=== PATIENT | female | born 2000 | race Caucasian/White ===

== ENCOUNTER 2020-04-11 15:25 | Emergency (ER) | payer OTHER ==
[~2020-04-11] VITALS: Ht 165.1 cm; Wt 63.5 kg
[2020-04-11 17:07] LABS: ABSOLUTE NEUTROPHILS 2.5 thou/uL (1.4-8.2); BASOPHILS 0.2 % (0.0-2.0); EOSINOPHILS 5.9 % (0.0-3.0); HEMATOCRIT 37.8 % (37.0-47.0); HEMOGLOBIN 12.8 gm/dL (12.0-15.0); LYMPHOCYTES 40.6 % (24.0-44.0); MCH 31.8 pg (26.0-34.0); MCHC 33.9 g/dL (28.0-37.0); MONOCYTES 8.3 % (1.0-8.0); PLATELET COUNT 213 thou/uL (150-400); RBC 4.02 mil/uL (4.20-5.00); RDW 13.2 % (10.5-14.5); WBC 5.6 thou/uL (4.0-11.0)
[2020-04-11 17:15] LABS: ANION GAP 10 mmol/L (7-16); BUN 11 mg/dL (7-18); CALCIUM 8.9 mg/dL (8.5-10.1); CHLORIDE 104 mmol/L (98-107); CO2 26 mmol/L (21-32); CREATININE 0.7 mg/dL (0.6-1.0); GLUCOSE 93 mg/dL (74-106); SODIUM 140 mmol/L (136-145)
[2020-04-11 17:22] LABS: ALBUMIN 3.6 g/dL (3.4-5.0); SALICYLATE < 2.8 mg/dL (2.8-20.0); SGOT 56 U/L (15-37); SGPT 67 U/L (30-65); TOTAL BILIRUBIN 0.2 mg/dL (0.2-1.0); TOTAL PROTEIN 7.2 g/dL (6.4-8.2)
[2020-04-11 18:18] LABS: URINE BILIRUBIN NEGATIVE (Negative); URINE BLOOD NEGATIVE (Negative); URINE CLARITY CLEAR; URINE COLOR YELLOW; URINE GLUCOSE-RANDOM* NEGATIVE (Negative); URINE KETONES NEGATIVE (Negative); URINE LEUKOCYTES-REFLEX NEGATIVE (Negative); URINE NITRITE-REFLEX NEGATIVE (Negative); URINE PROTEIN (DIPSTICK) NEGATIVE (Negative); URINE SPECIFIC GRAVITY >= 1.030 (1.005-1.035)
[2020-04-11 18:25] LABS: AMP/METHAMP Negative (Negative); BARBITURATES Negative (Negative); BENZODIAZEPINES Negative (Negative); COCAINE Negative (Negative); METHADONE Negative (Negative); OPIATES Negative (Negative); PCP Negative (Negative)
[2020-04-11] MEDS ORDERED: LEVO-T25 MCG PO (18:37)
[2020-04-11] MEDS ORDERED: ABILIFY10 MG PO (18:37)
[2020-04-11] MEDS ORDERED: SERTRALINE HCL100 MG PO (18:37)
[2020-04-11] MEDS ORDERED: CLARITIN10 MG PO (18:37)
[2020-04-11] MEDS ORDERED: DEPAKOTE ER500 M1 PO (18:38)
[2020-04-11] MEDS ORDERED: HYDROXYZINE HCL25 M2 PO (18:38)
[2020-04-11] MEDS ORDERED: MELATONIN3 M1 PO (18:39)
[2020-04-11] MEDS ORDERED: TRAZODONE HCL50 MG PO (18:45)
[2020-04-11] MEDS ORDERED: TYLENOL325 MG PO (18:46)
[2020-04-11] MEDS ORDERED: OLANZAPINE10 M1 PO (19:08)
[2020-04-11] MEDS ORDERED: ONDANSETRON HCL4 M2 PO (19:09)
[2020-04-11] MEDS ORDERED: HALDOL5 MG/1 ML IM (19:11)
[2020-04-11] MEDS ORDERED: HALOPERIDOL 5 MG5 MG PO (19:11)
[2020-04-11] MEDS ORDERED: LORAZEPAM 2MG2 MG/M1 IM (19:12)
[2020-04-11 22:04] VITALS: BP 105/68
== END 2020-04-11 22:05 | disposition short-term general hospital (02) ==
LOC: ER 15:25
PROVIDERS: Physician Assistant
DX: R45.851 Suicidal ideations (principal); E78.5 Hyperlipidemia, unspecified; Z79.899 Other long term (current) drug therapy

== ENCOUNTER 2020-04-12 13:30 | Emergency (ER) | payer OTHER ==
[~2020-04-12] VITALS: Ht 165.1 cm; Wt 63.5 kg
[~2020-04-12 13:30] MED LIST: ABILIFY10 MG PO; CLARITIN10 MG PO; DEPAKOTE ER500 M1 PO; HALDOL5 MG/1 ML IM; HALOPERIDOL 5 MG5 MG PO; HYDROXYZINE HCL25 M2 PO; LEVO-T25 MCG PO; LORAZEPAM 2MG2 MG/M1 IM; MELATONIN3 M1 PO; OLANZAPINE10 M1 PO; ONDANSETRON HCL4 M2 PO; SERTRALINE HCL100 MG PO; TRAZODONE HCL50 MG PO; TYLENOL325 MG PO
[2020-04-14 13:55] VITALS: BP 103/59
== END 2020-04-14 16:45 | disposition home or self-care (01) ==
LOC: ER 13:30
DX: R45.851 Suicidal ideations (principal); Z79.899 Other long term (current) drug therapy; Z20.828 Contact with and (suspected) exposure to other viral communicable diseases

== ENCOUNTER 2020-04-20 18:53 | Emergency (ER) | payer OTHER ==
[~2020-04-20] VITALS: Ht 170.2 cm; Wt 77.1 kg
[2020-04-20] MEDS ORDERED: ATIVAN0.5 M1 PO (22:25)
[2020-04-20] MEDS ORDERED: XANAX 0.5 MG0.5 MG PO (22:36)
[2020-04-21 01:16] VITALS: BP 119/68
== END 2020-04-21 01:15 | disposition home or self-care (01) ==
LOC: ER 18:53
DX: F41.9 Anxiety disorder, unspecified (principal); F32.9 Major depressive disorder, single episode, unspecified; E66.9 Obesity, unspecified; F17.210 Nicotine dependence, cigarettes, uncomplicated; Z76.0 Encounter for issue of repeat prescription; Z79.899 Other long term (current) drug therapy; Z68.26 Body mass index [BMI] 26.0-26.9, adult

== ENCOUNTER 2020-04-30 17:30 | Emergency (ER) | payer OTHER ==
[~2020-04-30] VITALS: Ht 170.2 cm; Wt 77.1 kg
[~2020-04-30 17:30] MED LIST changes: +ATIVAN0.5 M1 PO; +XANAX 0.5 MG0.5 MG PO
[2020-04-30] MEDS ORDERED: LORAZEPAM 0.50.5 MG PO (17:35)
[2020-04-30] MEDS ORDERED: IBU600 MG PO (17:36)
[2020-04-30] MEDS ORDERED: CHILDREN'S NA10.8 ML TOP (17:39)
[2020-04-30 18:49] LABS: URINE BILIRUBIN NEGATIVE (Negative); URINE BLOOD NEGATIVE (Negative); URINE CLARITY CLEAR; URINE COLOR YELLOW; URINE GLUCOSE-RANDOM* NEGATIVE (Negative); URINE KETONES NEGATIVE (Negative); URINE NITRITE-REFLEX NEGATIVE (Negative); URINE PROTEIN (DIPSTICK) NEGATIVE (Negative)
[2020-04-30 18:50] LABS: URINE LEUKOCYTES-REFLEX 2+ (Negative)
[2020-04-30 18:58] LABS: CASTS None Seen /LPF (None Seen); SQUAMOUS 4-10 Moderate /LPF (0-3); URINE RBC None Seen /HPF (0-2); URINE WBC-REFLEX 6-15 Few /HPF (0-5)
[2020-04-30 19:00] LABS: CRYSTALS None Seen /LPF (None Seen)
[2020-04-30 19:40] LABS: ABSOLUTE NEUTROPHILS 3.6 thou/uL (1.4-8.2); BASOPHILS 0.1 % (0.0-2.0); EOSINOPHILS 2.1 % (0.0-3.0); HEMATOCRIT 37.5 % (37.0-47.0); HEMOGLOBIN 12.9 gm/dL (12.0-15.0); LYMPHOCYTES 25.9 % (24.0-44.0); MCH 32.2 pg (26.0-34.0); MCHC 34.4 g/dL (28.0-37.0); MCV 93.7 fL (80.0-100.0); MONOCYTES 6.7 % (1.0-8.0); PLATELET COUNT 133 thou/uL (150-400); POLYS 65.2 % (36.0-66.0); RBC 4.01 mil/uL (4.20-5.00); RDW 12.9 % (10.5-14.5); WBC 5.6 thou/uL (4.0-11.0)
[2020-04-30 19:45] LABS: CALCIUM 9.2 mg/dL (8.5-10.1); CREATININE 0.9 mg/dL (0.6-1.0); POTASSIUM 4.1 mmol/L (3.5-5.1)
[2020-04-30 19:51] LABS: ALBUMIN 3.7 g/dL (3.4-5.0); TOTAL BILIRUBIN 0.3 mg/dL (0.2-1.0); TOTAL PROTEIN 7.4 g/dL (6.4-8.2)
[2020-04-30 21:25] VITALS: BP 94/62
== END 2020-04-30 22:45 | disposition home or self-care (01) ==
LOC: ER 17:30
PROVIDERS: Physician Assistant
DX: F32.9 Major depressive disorder, single episode, unspecified (principal); R45.851 Suicidal ideations; F41.9 Anxiety disorder, unspecified; F17.210 Nicotine dependence, cigarettes, uncomplicated; Z79.899 Other long term (current) drug therapy